=== PATIENT | male | born 1985 | race Caucasian/White ===

== ENCOUNTER 2016-07-05 12:06 | Emergency (ER) | payer OTHER ==
[2016-07-05 13:32] LABS: HEMOGLOBIN 13.9 gm/dl (14.0-17.5); RED BLOOD COUNT 4.41 M/UL (4.20-5.50)
[2016-07-05 13:52] LABS: BUN/CREATININE RATIO 11 (0-10)
== END 2016-07-05 14:22 | disposition left against medical advice (07) ==
LOC: ER1 12:06
PROVIDERS: Emergency Medicine
DX: E10.42 Type 1 diabetes mellitus with diabetic polyneuropathy (principal); E10.65 Type 1 diabetes mellitus with hyperglycemia
CPT/HCPCS: 36415; 80048; 85025; 99284

== ENCOUNTER 2016-09-03 10:54 | Emergency (ER) | payer OTHER | END 2016-09-03 11:00 | disposition left against medical advice (07) | LOC: ER1 10:54 | DX: Z53.20 Procedure and treatment not carried out because of patient's decision for unspecified reasons (principal) ==